=== PATIENT | male | born 1945 | race Two or more races ===

== ENCOUNTER 2023-12-18 14:31 | Inpatient (IN) | payer MEDICARE ==
[~2023-12-18] VITALS: Ht 172.7 cm; Wt 107.0 kg
[2023-12-18] MEDS ORDERED: AMLO-212 PO (15:41)
[2023-12-18] MEDS ORDERED: LISI-768 PO (15:41)
[2023-12-18] MEDS ORDERED: DONE5TAB34 PO (15:41)
[2023-12-18] MEDS ORDERED: MEMA5TAB42 PO (15:41)
[2023-12-18] MEDS ORDERED: LEVE500T20 PO (15:41)
[2023-12-18] MEDS ORDERED: MAG HYDROX/AL HYDROX/SIMETH 30 ML UDC PO PRN (18:00)
[2023-12-18] MEDS: ENOXAPARIN SODIUM 40 MG/0.4 ML DISP.SYRIN SQ SCH (19:14)
[2023-12-18 20:00] VITALS: BP 136/87; TEMP 97.7; O2SAT 96
[2023-12-18] MEDS: LEVETIRACETAM (250 MG) 250 MG TABLET PO SCH (20:03)
[2023-12-18 20:51] LABS: APPEARANCE,URINE CLEAR (CLEAR); BILIRUBIN,URINE NEGATIVE (NEGATIVE); BLOOD, URINE TRACE-INTA Ery/uL (NEGATIVE); COLOR,URINE YELLOW (YELLOW); KETONES,URINE TRACE mg/dL (NEGATIVE); LEUKOCYTE ESTERASE ,URINE NEGATIVE (NEGATIVE); NITRITE, URINE NEGATIVE (NEGATIVE); PROTEIN,URINE NEGATIVE (NEGATIVE); UGLUCOSE NEGATIVE (NEGATIVE); UROBILINOGEN,URINE 0.2 EU/dL (0.2)
[2023-12-18 21:06] LABS: AMPHETAMINE, URINE NEGATIVE (NEGATIVE); BARBITURATE, URINE NEGATIVE (NEGATIVE); BENZODIAZEPINE, URINE NEGATIVE (NEGATIVE); CANNABINOID, URINE NEGATIVE (NEGATIVE); COCCAINE, URINE NEGATIVE (NEGATIVE); OPIATE, URINE NEGATIVE (NEGATIVE); PHENCYCLIDINE SCREEN,URINE NEGATIVE (NEGATIVE)
[2023-12-18 21:08] LABS: ADD URINE CULTURE NO; BACTERIA,URINE None seen /HPF (None Seen); SQUAMOUS EPITHELIAL CELL,UR None Seen /HPF (None Seen); WBC,URINE NONE SEEN /HPF (0-3)
[2023-12-18] MEDS: DONEPEZIL 5 MG TABLET PO SCH (21:20)
[2023-12-18] MEDS: SIMVASTATIN 20 MG TABLET PO SCH (21:20)
[2023-12-19] VITALS (7 sets, daily range): BP systolic 99–136; BP diastolic 60–83; TEMP 97.7–98.2; O2SAT 94–99
[2023-12-19 07:34] LABS: BASOPHILS # (AUTO) 0.1 K/uL (0.0-0.2); BASOPHILS % (AUTO) 1.5 % (0.0-2.0); EOSINOPHILS # (AUTO) 0.3 K/uL (0.0-0.7); EOSINOPHILS % (AUTO) 4.2 % (0.0-6.0); HEMATOCRIT 44 % (39-51); HEMOGLOBIN 15.2 g/dL (13.5-17.5); LYMPHOCYTES # (AUTO) 2.3 K/uL (0.8-4.8); LYMPHOCYTES % (AUTO) 32.9 % (20.0-44.0); MEAN CORPUSCULAR HEMOGLOBIN 32 PG (26.0-33.0); MEAN CORPUSCULAR HGB CONC 34 g/dl (31.0-36.0); MEAN CORPUSCULAR VOLUME 94 fL (80-96); MONOCYTES # (AUTO) 0.8 K/uL (0.1-1.30); NEUTROPHILS # (AUTO) 3.5 K/uL (1.8-8.9); NEUTROPHILS % (AUTO) 50.4 % (43.0-81.0); PLATELET COUNT (AUTO) 138 K/uL (150-450); RED BLOOD CELL COUNT(AUTO) 4.69 MIL/uL (4.5-6.0); RED CELL DISTRIBUTION WIDTH 13.5 % (11.5-15.0)
[2023-12-19 07:58] LABS: CALCIUM, SERUM 8.7 mg/dL (8.5-10.1); CREATININE 0.8 mg/dL (0.6-1.3); POTASSIUM 3.7 mmol/L (3.5-5.1)
[2023-12-19] MEDS: AMLODIPINE BESYLATE 5 MG TABLET PO SCH (08:28)
[2023-12-19] MEDS: MEMANTINE HCL 5 MG TABLET PO SCH (08:28)
[2023-12-19] MEDS: PANTOPRAZOLE 40 MG TABLET.DR PO SCH (08:28)
[2023-12-19] MEDS: DOCUSATE SODIUM 100 MG CAPSULE PO SCH (08:28)
[2023-12-19] MEDS: LISINOPRIL (5MG) 5 MG TABLET PO SCH (08:29)
[2023-12-19] MEDS: ASPIRIN EC 325 MG TABLET.DR PO SCH (08:31)
[2023-12-19] MEDS ORDERED: IV NS 0.9% 250 ML IV ONE (10:03)
[2023-12-19] MEDS ORDERED: IOHEXOL-350 100 ML VIAL IV ONE (10:03)
[2023-12-19 12:01] LABS: INR 1.09 (0.91-1.10); PARTIAL THROMBOPLASTIN TIME 32.5 SEC (24.3-34.3); PROTHROMBIN TIME 11.5 SECS (9.2-11.1)
[2023-12-20] VITALS (8 sets, daily range): BP systolic 105–129; BP diastolic 58–77; TEMP 97.7–98.4; O2SAT 92–100
[2023-12-20] MEDS: ASPIRIN EC 81 MG TABLET.DR PO SCH (08:45)
[2023-12-20] MEDS: CYANOCOBALAMIN 1,000 MCG/ML VIAL IM SCH (08:51)
[2023-12-21] VITALS: BP 133/69; TEMP 98.1; O2SAT 95
[2023-12-21 01:06] LABS: FOLIC ACID 6.6 ng/mL (>3.0)
[2023-12-21 04:00] VITALS: BP 123/73; TEMP 97.8; O2SAT 95
[2023-12-21 07:58] VITALS: O2SAT 92
[2023-12-21 08:00] VITALS: BP 117/68; TEMP 97.5; O2SAT 94
[2023-12-21] MEDS ORDERED: Z GUARD REMEDY 4 OZ OINT TP PRN (08:30)
[2023-12-21] MEDS: Z GUARD REMEDY 4 OZ OINT TP SCH (13:06)
[2023-12-21 15:16] VITALS: BP 108/58; TEMP 98.2; O2SAT 94
[2023-12-21] MEDS ORDERED: Aspirin Ec PO (18:40)
[2023-12-21] MEDS ORDERED: CYAN10006 IM (18:40)
[2023-12-21] MEDS ORDERED: SIMV-46 PO (18:40)
== END 2023-12-21 15:45 | disposition home health service (06) | DRG 57 ==
LOC: TELE 14:37 → MED 12-21 13:33
PROVIDERS: ADMIT Nurse Practitioner Acute Care
DX: I69.320 Aphasia following cerebral infarction (principal); G93.49 Other encephalopathy; R29.703 NIHSS score 3; I10 Essential (primary) hypertension; Z66 Do not resuscitate; F03.90 Unspecified dementia, unspecified severity, without behavioral disturbance, psychotic disturbance, mood disturbance, and anxiety; E66.9 Obesity, unspecified; Z68.35 Body mass index [BMI] 35.0-35.9, adult
CPT/HCPCS: 36415; 70496-TC; 70498-TC; 80048-TC; 80061-TC; 81001; 82607-TC; 83921; 84443-TC; 85025-TC; 85652-TC; 85730-TC; 87040-TC; 92507-TC; 92521; 92526; 92611-TC; 93307-TC; 94760-TC; 94799-TC; 97110-TC; 97112-TC; 97116-TC; 97530-TC; 97535-TC; G0378; J1650; J3420; J7050; Q9967

== ENCOUNTER 2024-11-18 18:14 | Inpatient (IN) | payer MEDICARE ==
[~2024-11-18] VITALS: Ht 160 cm; Wt 108.9 kg
[~2024-11-18 18:14] MED LIST: AMLO-212 PO; Aspirin Ec PO; CYAN10006 IM; DONE5TAB34 PO; LEVE500T20 PO; LISI-768 PO; MEMA5TAB42 PO; SIMV-46 PO
[2024-11-18 21:00] VITALS: BP 142/71; TEMP 98.2; O2SAT 95
[2024-11-19] VITALS: BP 146/70; TEMP 98; O2SAT 93
[2024-11-19 04:00] VITALS: BP 129/73; TEMP 98.1; O2SAT 95
[2024-11-19 06:17] LABS: BASOPHILS # (AUTO) 0.1 K/uL (0.0-0.2); BASOPHILS % (AUTO) 1.1 % (0.0-2.0); EOSINOPHILS # (AUTO) 0.2 K/uL (0.0-0.7); EOSINOPHILS % (AUTO) 3.2 % (0.0-6.0); HEMATOCRIT 44 % (39-51); LYMPHOCYTES # (AUTO) 2.1 K/uL (0.8-4.8); LYMPHOCYTES % (AUTO) 31.7 % (20.0-44.0); MEAN CORPUSCULAR HEMOGLOBIN 32 PG (26.0-33.0); MEAN CORPUSCULAR HGB CONC 34 g/dl (31.0-36.0); MEAN CORPUSCULAR VOLUME 93 fL (80-96); MONOCYTES # (AUTO) 0.8 K/uL (0.1-1.30); MONOCYTES % (AUTO) 11.4 % (2.0-12.0); NEUTROPHILS # (AUTO) 3.5 K/uL (1.8-8.9); NEUTROPHILS % (AUTO) 52.6 % (43.0-81.0); PLATELET COUNT (AUTO) 122 K/uL (150-450); RED BLOOD CELL COUNT(AUTO) 4.77 MIL/uL (4.5-6.0); RED CELL DISTRIBUTION WIDTH 13.5 % (11.5-15.0); WHITE BLOOD COUNT (AUTO) 6.7 K/uL (4.3-11.0)
[2024-11-19] MEDS: BLOOD SUGAR DIAGNOSTIC 1 EACH STRIP IN SCH (06:31)
[2024-11-19 06:51] LABS: THYROID STIMULATING HORMONE 0.51 uIU/mL (0.358-3.74)
[2024-11-19] MEDS: PANTOPRAZOLE 40 MG TABLET.DR PO SCH (07:31)
[2024-11-19] MEDS: ASPIRIN EC 81 MG TABLET.DR PO SCH (09:07)
[2024-11-19] MEDS: FOLIC ACID 1 MG TABLET PO SCH (09:07)
[2024-11-19] MEDS: MEMANTINE HCL 5 MG TABLET PO SCH (09:07)
[2024-11-19] MEDS: THIAMINE HCL 100 MG TABLET PO SCH (09:08)
[2024-11-19] MEDS: MULTIVITAMINS,THERAGRAN 1 UDTAB TABLET PO SCH (09:08)
[2024-11-19] MEDS: LEVETIRACETAM (250 MG) 250 MG TABLET PO SCH (09:08)
[2024-11-19 09:26] VITALS: BP 125/74; TEMP 97.7; O2SAT 92
[2024-11-19 12:52] VITALS: BP 130/62; TEMP 97.5; O2SAT 1
[2024-11-19] MEDS: ACETAMINOPHEN 650 MG/20.3 ML UDC NG PRN (17:13)
[2024-11-19 21:34] VITALS: BP 120/78; TEMP 98.2; O2SAT 95
[2024-11-19] MEDS: SIMVASTATIN 20 MG TABLET PO SCH (21:39)
[2024-11-19] MEDS: DONEPEZIL 5 MG TABLET PO SCH (21:39)
[2024-11-20 04:00] VITALS: BP 122/58; TEMP 98.4; O2SAT 94
[2024-11-20 07:32] LABS: ALBUMIN 3.1 g/dL (3.4-5.0); BILIRUBIN,DIRECT 0.2 mg/dL (0.0-0.2); BILIRUBIN,TOTAL 0.8 mg/dL (0.2-1.0); CALCIUM, SERUM 8.7 mg/dL (8.5-10.1); CREATININE 0.9 mg/dL (0.6-1.3); POTASSIUM 3.4 mmol/L (3.5-5.1); TOTAL PROTEIN, SERUM 6.4 g/dL (6.4-8.2)
[2024-11-20 07:40] LABS: BASOPHILS # (AUTO) 0.1 K/uL (0.0-0.2); BASOPHILS % (AUTO) 0.8 % (0.0-2.0); EOSINOPHILS # (AUTO) 0.3 K/uL (0.0-0.7); HEMATOCRIT 44 % (39-51); LYMPHOCYTES # (AUTO) 2.2 K/uL (0.8-4.8); MEAN CORPUSCULAR HEMOGLOBIN 32 PG (26.0-33.0); MEAN CORPUSCULAR HGB CONC 34 g/dl (31.0-36.0); MEAN CORPUSCULAR VOLUME 94 fL (80-96); MONOCYTES # (AUTO) 0.9 K/uL (0.1-1.30); MONOCYTES % (AUTO) 10.5 % (2.0-12.0); NEUTROPHILS # (AUTO) 5.1 K/uL (1.8-8.9); NEUTROPHILS % (AUTO) 59.7 % (43.0-81.0); PLATELET COUNT (AUTO) 118 K/uL (150-450); RED CELL DISTRIBUTION WIDTH 13.6 % (11.5-15.0); WHITE BLOOD COUNT (AUTO) 8.5 K/uL (4.3-11.0)
[2024-11-20 08:29] VITALS: BP 106/50; TEMP 98.2; O2SAT 96
[2024-11-20] MEDS: LACTULOSE 10 G/15 ML UDC (PYXIS) PO SCH (11:09)
[2024-11-20] MEDS: POTASSIUM CHLORIDE 20 MEQ TAB.PRT.SR PO SCH (12:34)
[2024-11-20] MEDS ORDERED: GADOTERATE MEGLUMINE 10 MMOL/20 ML VIAL IV ONE (15:14)
[2024-11-20 16:08] VITALS: BP 114/67; TEMP 98.2; O2SAT 93
[2024-11-20 20:00] VITALS: BP_SYST 130; BP_SYST 71; BP_DIAS 44; BP_DIAS 76; TEMP 98.2; TEMP 99.3; O2SAT 93; O2SAT 97
[2024-11-21 06:24] LABS: POTASSIUM 3.7 mmol/L (3.5-5.1)
[2024-11-21 06:30] LABS: BASOPHILS # (AUTO) 0.1 K/uL (0.0-0.2); BASOPHILS % (AUTO) 0.8 % (0.0-2.0); EOSINOPHILS # (AUTO) 0.3 K/uL (0.0-0.7); EOSINOPHILS % (AUTO) 2.6 % (0.0-6.0); HEMATOCRIT 45 % (39-51); HEMOGLOBIN 15.3 g/dL (13.5-17.5); LYMPHOCYTES # (AUTO) 2.9 K/uL (0.8-4.8); LYMPHOCYTES % (AUTO) 29.6 % (20.0-44.0); MEAN CORPUSCULAR HEMOGLOBIN 32 PG (26.0-33.0); MEAN CORPUSCULAR HGB CONC 34 g/dl (31.0-36.0); MEAN CORPUSCULAR VOLUME 93 fL (80-96); MONOCYTES # (AUTO) 1.2 K/uL (0.1-1.30); MONOCYTES % (AUTO) 11.6 % (2.0-12.0); NEUTROPHILS # (AUTO) 5.5 K/uL (1.8-8.9); NEUTROPHILS % (AUTO) 55.4 % (43.0-81.0); PLATELET COUNT (AUTO) 119 K/uL (150-450); RED BLOOD CELL COUNT(AUTO) 4.83 MIL/uL (4.5-6.0); RED CELL DISTRIBUTION WIDTH 13.3 % (11.5-15.0)
[2024-11-21 08:00] VITALS: BP 153/72; TEMP 98.1; O2SAT 96
[2024-11-21] MEDS: NEOMY SULF/BACITRAC ZN/POLY 15 GM TUBE TP SCH (09:00)
== END 2024-11-21 15:15 | disposition home health service (06) | DRG 69 ==
LOC: TELE 20:39 → MED 11-20 12:02
DX: G45.9 Transient cerebral ischemic attack, unspecified (principal); G92.8 Other toxic encephalopathy; E51.2 Wernicke's encephalopathy; Z68.41 Body mass index [BMI] 40.0-44.9, adult; F01.50 Vascular dementia, unspecified severity, without behavioral disturbance, psychotic disturbance, mood disturbance, and anxiety; G40.909 Epilepsy, unspecified, not intractable, without status epilepticus; E66.9 Obesity, unspecified; E78.5 Hyperlipidemia, unspecified; I10 Essential (primary) hypertension; I25.10 Atherosclerotic heart disease of native coronary artery without angina pectoris; I69.320 Aphasia following cerebral infarction; R53.1 Weakness; R29.714 NIHSS score 14
CPT/HCPCS: 36415; 70553-TC; 80048-TC; 80061-TC; 80076-TC; 80177; 82140-TC; 82962-TC; 84443-TC; 85025-TC; 93307-TC; 95819-TC; 97110-TC; 97116-TC; 97530-TC; 97535-TC; A9575; G0378